=== PATIENT | female | born 1955 | race Caucasian/White ===

== ENCOUNTER 2019-03-20 08:44 | Day surgery (SDC) | payer BC ==
[~2019-03-20 08:44] MED LIST: Propofol 200 MG/20 ML SDV ONE; Sodium Chloride 0.9% 10 ML Syringe FLUSH PRN
[2019-03-20] MEDS: Lactated Ringers 1,000 ML IV SCH (09:16)
--- NOTE | 2019-03-20 09:24 | PCM.HPR ---
H & P Addendum review - H & P Addendum Review Date of Original H & P: 03/04/19 Date Reviewed: 03/20/19 Time Reviewed: 09:23 Patient was Examined: No Changes
[2019-03-20] MEDS ORDERED: Propofol 200 MG/20 ML SDV ONE (09:30)
--- NOTE | 2019-03-20 09:52 | PCM.OPNOTE ---
- General Post-Op/Procedure Note Date of Surgery/Procedure: 03/20/19 Operative Procedure(s): Colonoscopy Findings: Sig tics Pre Op Diagnosis: FH Colon Ca Post-Op Diagnosis: Same Anesthesia Technique: MAC Primary Surgeon: Ruddy Mccoy Anesthesia Provider: Roxanna Lee Complications: None Condition: Good
--- NOTE | 2019-03-20 14:52 | OR ---
Date of Procedure: 03/20/2019 PREOPERATIVE DIAGNOSES: 1. Family history of colon cancer in mother. 2. Family history of ulcerative colitis in son. POSTOPERATIVE DIAGNOSIS: Sigmoid diverticulosis. PROCEDURE: Colonoscopy. ANESTHESIA: IV sedation. DESCRIPTION OF PROCEDURE: The patient was brought to the procedure room where she was placed on her left side and IV sedation administered. Digital rectal exam was performed which was normal. Colonoscope was inserted and advanced to the level of the cecum with minimal difficulty getting through tortuous sigmoid colon. Cecum was confirmed by identifying the appendiceal lumen and ileocecal valve. Prep was good and surfaces were well visualized. Upon withdrawing the scope, the ascending, transverse, and descending colon were normal in appearance. Sigmoid colon was tortuous with multiple diverticula present. Rectum was normal and retroflexion was normal. Air was removed and the scope withdrawn. The patient tolerated the procedure well and returned to Recovery in stable condition. Recommend routine colon screening again in 5 years. EULOGIO AUGUSTE MD /[id number]
== END 2019-03-20 10:52 | disposition home or self-care (01) ==
LOC: LL.SDS 08:44
PROVIDERS: ATTEND Surgery
DX: K57.30 Diverticulosis of large intestine without perforation or abscess without bleeding (principal); R19.4 Change in bowel habit; Z80.0 Family history of malignant neoplasm of digestive organs; Z83.79 Family history of other diseases of the digestive system; E78.5 Hyperlipidemia, unspecified; R06.9 Unspecified abnormalities of breathing; E03.9 Hypothyroidism, unspecified; Z79.899 Other long term (current) drug therapy; Z88.0 Allergy status to penicillin; Z91.048 Other nonmedicinal substance allergy status; Z98.890 Other specified postprocedural states; Z87.891 Personal history of nicotine dependence
CPT/HCPCS: J2704; J7120

== ENCOUNTER 2020-05-15 00:36 | Observation (INO) | payer MEDICARE, BC ==
[2020-05-15] MEDS ORDERED: Sodium Chloride 0.9% 10 ML Syringe FLUSH PRN (00:48)
[2020-05-15 01:22] LABS: PTT,PARTIAL THROMBOPLSTIN TIME 24.7 SEC (24.5-32.8)
[2020-05-15 01:23] LABS: CHLORIDE,CL 106 mmol/L (98-107); SODIUM,NA 142 mmol/L (136-145)
--- NOTE | 2020-05-15 02:02 | EDM.PDOC ---
ED HPI GENERAL MEDICAL PROBLEM - General Chief Complaint: Chest Pain Stated Complaint: chest pain Time Seen by Provider: 05/15/20 00:58 Source of Information: Reports: Patient History Limitations: Reports: No Limitations - History of Present Illness INITIAL COMMENTS - FREE TEXT/NARRATIVE: Patient comes in with complaint of irregular heart beat that was worse at home prior to coming to ER. Has had issues with irregularity since being sick with what she suspects was Covid last spring. This has worsened. Has had chronic issues with mild SOB also since the illness. Kandice developed mild 2/10 discomfort around epigastric area/tightness when her heart was "jumping around" more than usual. Also lightheaded with this. Has had recent cardiac echo and initial evaluation through local [facility] for this. Pending Cardiology consultation next Sunday. No fevers/chills No HEENT changes/vision changes/runny nose/ST/URI complaints Resp + for the ongoing mild SOB since Spring. No acute cough/sputum/pleuritic pain. CV + for irregular heart beats/palpitations/dizziness GI - for nausea/emesis/bowel changes/abdominal pain MS - for acute back or limb pain/other acute changes Neuro - for one sided weakness/tingling/headache Skin - for rash Treatments APPEALS COORDINATOR: Reports: Aspirin Middle Chest Pain Score (Numeric/FACES): 2 - Related Data Allergies Allergy/AdvReac Type Severity Reaction Status Date / Time boric acid Allergy UNKNOWN Verified 03/20/19 08:59 nickel Allergy UNKNOWN Verified 03/20/19 08:59 Penicillins AdvReac Unknown UNKNOWN Verified 05/15/20 00:38 Home Meds: Home Meds Cholecalciferol (Vitamin D3) [Vitamin D3] 1,000 units PO DAILY 03/20/19 [History] Levothyroxine [Synthroid] 100 mcg PO DAILY 03/20/19 [History] Multivitamin [Multi-Vitamin Daily] 2 tab PO WEEKLY 03/20/19 [History] Ubidecarenone [Co Q-10] 100 mg PO BEDTIME 03/20/19 [History] atorvaSTATin [Lipitor] 10 mg PO BEDTIME 03/20/19 [History] [place]-3/DHA/Epa/Fish Oil [[place]-3 Fish Oil Softgel] 1 cap PO ASDIRECTED 05/15/20 [History] Past Medical History Cardiovascular History: Reports: Arrhythmia Respiratory History: Reports: None Gastrointestinal History: Reports: Colon Polyp, Diverticulosis Genitourinary History: Reports: UTI, Recurrent BINDING FOLDER MACHINE History: Reports: Other (See Below) Other BINDING FOLDER MACHINE History: ablation Musculoskeletal History: Reports: Other (See Below) Other Musculoskeletal History: many broken bones in hx denies bone disease Neurological History: Reports: Concussion, Head Trauma, Other (See Below) Other Neuro History: brain bleed Psychiatric History: Reports: ADD, Anxiety Endocrine/Metabolic History: Reports: Other (See Below) Other Endocrine/Metabolic History: daniel syndrome Immunologic History: Reports: Other (See Below) Other Immunologic History: daniel disease Oncologic (Cancer) History: Reports: None Dermatologic History: Reports: None - Infectious Disease History Infectious Disease History: Reports: Chicken Pox - Past Surgical History HEENT Surgical History: Reports: LASIK, Oral Surgery Cardiovascular Surgical History: Reports: None Respiratory Surgical History: Reports: None GI Surgical History: Reports: Colonoscopy Female Surgical History: Reports: Tubal Ligation Endocrine Surgical History: Reports: Thyroidectomy Neurological Surgical History: Reports: Spinal Fusion Musculoskeletal Surgical History: Reports: Other (See Below) Other Musculoskeletal Surgeries/Procedures:: back fusion, right ankle tendon tightening Oncologic Surgical History: Reports: None Dermatological Surgical History: Reports: None Social & Family History - Family History Cardiac: Reports: Hypertension, Other (See Below) Other Cardiac Family History: CVD GI: Reports: Other (See Below) Other GI Family History: Ulcerative colitis - Tobacco Use Smoking Status *Q: Current Some Day Smoker Years of Tobacco use: 0 Packs/Tins Daily: 0 Used Tobacco, but Quit: No Second Hand Smoke Exposure: No - Caffeine Use Caffeine Use: Reports: Coffee - Alcohol Use Days Per Week of Alcohol Use: 7 Number of Drinks Per Day: 1 Total Drinks Per Week: 7 - Recreational Drug Use Recreational Drug Use: Yes Drug Use in Last 12 Months: Yes Recreational Drug Type: Reports: Marijuana/Hashish Recreational Drug Use Frequency: Rarely ED ROS GENERAL - Review of Systems Review Of Systems: Comprehensive ROS is negative, except as noted in HPI. ED EXAM, GENERAL - Physical Exam Exam: See Below Exam Limited By: No Limitations General Appearance: Alert, WD/WN, No Apparent Distress Eye Exam: Bilateral Eye: EOMI, PERRL Ears: Hearing Grossly Normal Nose: Normal Inspection Throat/Mouth: Normal Inspection, Normal Lips, Normal Voice, No Airway Compromise Head: Atraumatic, Normocephalic Neck: Supple, Non-Tender, Full Range of Motion Respiratory/Chest: No Respiratory Distress, Lungs Clear, Normal Breath Sounds, N o Accessory Muscle Use, Chest Non-Tender Cardiovascular: Regular Rate, Rhythm, No Murmur, Other (occasional premature beats) GI/Abdominal: Normal Bowel Sounds, Soft, Non-Tender, No Distention (Female) Exam: Deferred Rectal (Female) Exam: Deferred Back Exam: No: CVA Tenderness (L), CVA Tenderness (R), Muscle Spasm Extremities: Normal Inspection, Normal Capillary Refill Neurological: Alert, Oriented, CN II-XII Intact, Normal Cognition, Normal Gait, No Motor/Sensory Deficits Psychiatric: Normal Affect, Normal Mood Skin Exam: Warm, Dry, Intact, Normal Color EKG INTERPRETATION EKG Date: 05/15/20 Time: 00:30 Rhythm: Other (Sinus Bradycardia) Rate (Beats/Min): 58 [place]: Normal P-Wave: Present QRS: Normal ST-T: Normal QT: Normal Comparison: NA - No Prior EKG EKG Interpretation Comments: intermittent PVCs noted Course - Vital Signs Last Recorded V/S: Last Vital Signs Temp 36.6 C 05/15/20 00:43 Pulse 59 L 05/15/20 01:30 Resp 16 05/15/20 01:30 BP 112/63 05/15/20 01:30 Pulse Ox 97 05/15/20 01:30 - Orders/Labs/Meds Orders: Active Orders 24 hr Category Date Time Status Cardiac Monitoring [RC] . DIRECTED Care 05/15/20 00:48 Active EKG Documentation Completion [RC] ASDIRECTED Care 05/15/20 00:48 Active Peripheral IV Care [RC] . DIRECTED Care 05/15/20 00:50 Active CXR [Chest 2V] [CR] Stat Exams 05/15/20 00:48 Ordered Sodium Chloride 0.9% [Saline Flush] Med 05/15/20 00:48 Active 10 ml FLUSH ASDIRECTED PRN Peripheral IV Insertion Adult [OM.PC] Stat Oth 05/15/20 00:48 Ordered EKG 12 Lead [EK] Stat Ther 05/15/20 00:48 Ordered Medication Orders Sodium Chloride (Saline Flush) 10 ml FLUSH ASDIRECTED PRN PRN Reason: Keep Vein Open Labs: Laboratory Tests 05/15/20 05/15/20 05/15/20 Range/Units 00:55 00:55 00:55 WBC 5.4 (4.0-10.2) K/uL RBC 4.32 (3.77-5.09) M/uL Hgb 12.8 (11.7-15.5) g/dL Hct 38.5 (34.0-46.0) % MCV 89.1 (84.0-98.0) fL MCH 29.6 (28.2-33.3) pg MCHC 33.2 (31.7-36.0) g/dL RDW 13.1 (11.2-14.1) % Plt Count 239 (150-350) K/uL Neut % (Auto) 45.8 (45.0-80.0) % Lymph % (Auto) 33.3 (10.0-50.0) % [place] % (Auto) 9.9 (2.0-14.0) % Eos % (Auto) 9.3 H (0.0-5.0) % Baso % (Auto) 1.7 (0.0-2.0) % Neut # (Auto) 2.46 (1.40-7.00) K/uL Lymph # (Auto) 1.79 (0.50-3.50) K/uL [place] # (Auto) 0.53 (0.00-1.00) K/uL Eos # (Auto) 0.50 (0.00-0.50) K/uL Baso # (Auto) 0.09 (0.00-0.20) K/uL PT 9.7 (9.5-12.0) SEC INR 1.0 APTT 24.7 (24.5-32.8) SEC Sodium 142 (136-145) mmol/L Potassium 3.7 (3.5-5.1) mmol/L Chloride 106 (98-107) mmol/L Carbon Dioxide 24.0 (21.0-32.0) mmol/L BUN 12 (7-18) mg/dL Creatinine 0.78 (0.51-1.17) mg/dL Est Cr Clr Drug Dosing 74.66 mL/min Estimated GFR (MDRD) > 60 mL/min Glucose 103 (74-106) mg/dL Lactic Acid (0.4-2.0) mmol/L Calcium 8.8 (8.5-10.1) mg/dL Magnesium 2.1 (1.8-2.4) mg/dL Total Bilirubin 0.2 (0.2-1.0) mg/dL AST 24 (15-37) U/L ALT 33 (12-78) U/L Alkaline Phosphatase 77 (46-116) IU/L Creatine Kinase 152 (26-308) U/L Creatine Kinase Index 1.5 (0.0-2.5) % CK-MB (CK-2) 2.30 (0.00-3.60) ng/mL Troponin I 0.000 (0.000-0.056) ng/mL NT-Pro-B Natriuret Pep 65 (0-125) pg/mL Total Protein 7.7 (6.4-8.2) g/dL Albumin 4.0 (3.4-5.0) g/dL TSH, Ultra Sensitive 6.073 H (0.358-3.740) mIU/mL 05/15/20 Range/Units 00:55 WBC (4.0-10.2) K/uL RBC (3.77-5.09) M/uL Hgb (11.7-15.5) g/dL Hct (34.0-46.0) % MCV (84.0-98.0) fL MCH (28.2-33.3) pg MCHC (31.7-36.0) g/dL RDW (11.2-14.1) % Plt Count (150-350) K/uL Neut % (Auto) (45.0-80.0) % Lymph % (Auto) (10.0-50.0) % [place] % (Auto) (2.0-14.0) % Eos % (Auto) (0.0-5.0) % Baso % (Auto) (0.0-2.0) % Neut # (Auto) (1.40-7.00) K/uL Lymph # (Auto) (0.50-3.50) K/uL [place] # (Auto) (0.00-1.00) K/uL Eos # (Auto) (0.00-0.50) K/uL Baso # (Auto) (0.00-0.20) K/uL PT (9.5-12.0) SEC INR APTT (24.5-32.8) SEC Sodium (136-145) mmol/L Potassium (3.5-5.1) mmol/L Chloride (98-107) mmol/L Carbon Dioxide (21.0-32.0) mmol/L BUN (7-18) mg/dL Creatinine (0.51-1.17) mg/dL Est Cr Clr Drug Dosing mL/min Estimated GFR (MDRD) mL/min Glucose (74-106) mg/dL Lactic Acid 0.5 (0.4-2.0) mmol/L Calcium (8.5-10.1) mg/dL Magnesium (1.8-2.4) mg/dL Total Bilirubin (0.2-1.0) mg/dL AST (15-37) U/L ALT (12-78) U/L Alkaline Phosphatase (46-116) IU/L Creatine Kinase (26-308) U/L Creatine Kinase Index (0.0-2.5) % CK-MB (CK-2) (0.00-3.60) ng/mL Troponin I (0.000-0.056) ng/mL NT-Pro-B Natriuret Pep (0-125) pg/mL Total Protein (6.4-8.2) g/dL Albumin (3.4-5.0) g/dL TSH, Ultra Sensitive (0.358-3.740) mIU/mL Meds: Medications Generic Name Dose Route Start Last Admin Trade Name Toribioq PRN Reason Stop Dose Admin Sodium Chloride 10 ml 05/15/20 00:48 Saline Flush FLUSH ASDIRECTED PRN Keep Vein Open - Radiology Interpretation Free Text/Narrative:: Chest xray unremarkable - Re-Assessments/Exams Free Text/Narrative Re-Assessment/Exam: 05/15/20 02:05 Nonfocal exam. Labs unremarkable except for elevated TSH. No acute ST changes on EKG Patient noted to have varying amounts of PVCs on telemetry, at one point briefly showing Trigeminy. Plan at this time is to admit observation and continue telemetry. She is feeling improved overall at this time. Vital signs stable. Departure - Departure Time of Disposition: 02:07 Disposition: Refer to Observation Condition: Good Clinical Impression: Symptomatic PVCs - Discharge Information *PRESCRIPTION DRUG MONITORING PROGRAM REVIEWED*: Not Applicable *COPY OF PRESCRIPTION DRUG MONITORING REPORT IN PATIENT COLIN: Not Applicable Sepsis Event Note (ED) - Evaluation Sepsis Screening Result: No Definite Risk - Focused Exam Vital Signs: Vital Signs Temp Pulse Resp BP Pulse Ox 05/15/20 01:30 59 L 16 112/63 97 05/15/20 01:10 57 L 13 136/65 98 05/15/20 00:50 60 16 136/65 97 05/15/20 00:43 36.6 C 63 16 122/83 97 - Problem List & Annotations (1) Symptomatic PVCs SNOMED Code(s): 76009879 Code(s): I49.3 - VENTRICULAR PREMATURE DEPOLARIZATION Status: Chronic Priority: High Current Visit: Yes Annotation/Comment:: Symptomatic PVCs tonight. Increased SOB/lightheaded. Improved by time of arrival to ER. Frequent PVCs on telemetry/brief Trigeminy noted. Normal cardiac enzymes. Was evaluated via clinic with 24 hour heart monitor. Pending Cardiology appointment at [place] this coming Sunday. Admit observation/telemetry at this time. Cardiology consult depending on clinical course. (2) Hyperlipidemia SNOMED Code(s): 57086277 Code(s): E78.5 - HYPERLIPIDEMIA, UNSPECIFIED Status: Chronic Current Visit: Yes Annotation/Comment:: under therapy Qualifiers: Hyperlipidemia type: unspecified Qualified Code(s): E78.5 - Hyperlipidemia, unspecified (3) Hypothyroid SNOMED Code(s): 28759500 Code(s): E03.9 - HYPOTHYROIDISM, UNSPECIFIED Status: Chronic Priority: Medium Current Visit: Yes Annotation/Comment:: Elevated TSH. Will need medication adjustment and continued follow up by PCP. 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 DIRECTED EKG Documentation Completion [RC] ASDIRECTED CXR [Chest 2V] [CR] Stat Sodium Chloride 0.9% [Saline Flush] 10 ml FLUSH ASDIRECTED PRN Peripheral IV Insertion Adult [OM.PC] Stat EKG 12 Lead [EK] Stat 05/15/20 00:50 Peripheral IV Care [RC] . DIRECTED - Assessment/Plan Admission H&P: Please use this note as an admission H&P Last 24 Hours: My Active Orders 05/15/20 00:48 Cardiac Monitoring [RC] . DIRECTED EKG Documentation Completion [RC] ASDIRECTED CXR [Chest 2V] [CR] Stat Sodium Chloride 0.9% [Saline Flush] 10 ml FLUSH ASDIRECTED PRN Peripheral IV Insertion Adult [OM.PC] Stat EKG 12 Lead [EK] Stat 05/15/20 00:50 Peripheral IV Care [RC] . DIRECTED Assessment:: as above. Stable and suitable for general supervision Plan: as above. Consider discharge later today if feeling better and remains stable/excessive PVCs do not return. to assume care of patient at 9am.
[2020-05-15] MEDS ORDERED: Levothyroxine 50 MCG Tab PO ONE (02:22)
[2020-05-15] MEDS: Levothyroxine 100 MCG Tab PO SCH (08:46)
--- NOTE | 2020-05-15 12:41 | PCM.PN ---
- General Info Date of Service: 05/15/20 Admission Dx/Problem (Free Text): 1. Chest pain 2. Cardiac arrhythmia Functional Status: Reports: Pain Controlled, Tolerating Diet, Ambulating, Urinating. Denies: New Symptoms, Incentive Spirometry Pain Score: 0 - Review of Systems General: Reports: No Symptoms. Denies: Fever, Weakness, Fatigue, Malaise, Chills, Night Sweats, Appetite (Appetite good) HEENT: Reports: No Symptoms. Denies: Dysphasia, Ear Pain, Eye Pain, Headaches, Post Nasal Drip, Sinus Congestion, Sore Throat, Rhinitis, Visual Changes Pulmonary: Reports: No Symptoms. Denies: Shortness of Breath, Pleuritic Chest Pain, Cough, Sputum, Hemoptysis, Wheezing Cardiovascular: Reports: Dyspnea on Exertion. Denies: Chest Pain, Palpitations, Orthopnea, PND, Edema, Lightheadedness Gastrointestinal: Reports: No Symptoms, Other (Normal bowel movement today). Denies: Abdominal Pain, Constipation, Decreased Appetite, Diarrhea, Difficulty Swallowing, Flatus, Hematochezia, Melena, Nausea, Vomiting Genitourinary: Reports: No Symptoms. Denies: Dysuria, Frequency, Burning, Urgency, Incontinence, Hematuria, Retention, Flank Pain Musculoskeletal: Reports: No Symptoms. Denies: Neck Pain, Shoulder Pain, Arm Pain, Back Pain, Leg Pain Skin: Reports: No Symptoms. Denies: Diaphoresis, Bruising Neurological: Reports: No Symptoms. Denies: Confusion, Dizziness, Headache, Numbness, Paresthesia, Tingling, Trouble Speaking, Difficulty Walking, Weakness Psychiatric: Reports: No Symptoms. Denies: Confusion, Depression, Agitation, Cravings, Hallucinations - Patient Data Vitals - Most Recent: Last Vital Signs Temp 37.0 C 05/15/20 12:00 Pulse 68 05/15/20 12:00 Resp 16 05/15/20 12:00 BP 115/72 05/15/20 12:00 Pulse Ox 94 L 05/15/20 12:00 Vital Signs - 24 hr 05/15/20 05/15/20 05/15/20 00:43 00:50 01:10 Temperature [ 36.6 C Temporal] Pulse, 63 60 57 L Peripheral [ Apical] Pulse, Peripheral [ Right Pulse Oximetry] Respiratory 16 16 13 Rate Blood Pressure 122/83 136/65 136/65 [Left Upper Arm ] O2 Sat by Pulse 97 97 98 Oximetry 05/15/20 05/15/20 05/15/20 01:30 02:03 02:19 Temperature [ 36.4 C Temporal] Pulse, 59 L 57 L Peripheral [ Apical] Pulse, Peripheral [ Right Pulse Oximetry] Respiratory 16 13 Rate Blood Pressure 112/63 119/79 [Left Upper Arm ] O2 Sat by Pulse 97 97 98 Oximetry 05/15/20 05/15/20 08:49 12:00 Temperature [ 36.7 C 37.0 C Temporal] Pulse, Peripheral [ Apical] Pulse, 58 L 68 Peripheral [ Right Pulse Oximetry] Respiratory 16 16 Rate Blood Pressure 112/79 115/72 [Left Upper Arm ] O2 Sat by Pulse 94 L Oximetry Weight - Most Recent: 67.404 kg Imaging Impressions - Last 24 Hours: nurse monitoring shows persistent trigeminy after admission with improved arrhythmia at this time, although persistent frequent PVCs with average heart rate in the 60s with no other ectopy or arrhythmia Lab Results Last 24 Hours: Laboratory Results - last 24 hr 05/15/20 05/15/20 05/15/20 Range/Units 00:50 00:55 00:55 WBC 5.4 (4.0-10.2) K/uL RBC 4.32 (3.77-5.09) M/uL Hgb 12.8 (11.7-15.5) g/dL Hct 38.5 (34.0-46.0) % MCV 89.1 (84.0-98.0) fL MCH 29.6 (28.2-33.3) pg MCHC 33.2 (31.7-36.0) g/dL RDW 13.1 (11.2-14.1) % Plt Count 239 (150-350) K/uL Neut % (Auto) 45.8 (45.0-80.0) % Lymph % (Auto) 33.3 (10.0-50.0) % [place] % (Auto) 9.9 (2.0-14.0) % Eos % (Auto) 9.3 H (0.0-5.0) % Baso % (Auto) 1.7 (0.0-2.0) % Neut # (Auto) 2.46 (1.40-7.00) K/uL Lymph # (Auto) 1.79 (0.50-3.50) K/uL [place] # (Auto) 0.53 (0.00-1.00) K/uL Eos # (Auto) 0.50 (0.00-0.50) K/uL Baso # (Auto) 0.09 (0.00-0.20) K/uL PT 9.7 (9.5-12.0) SEC INR 1.0 APTT 24.7 (24.5-32.8) SEC D-Dimer, Quantitative 154 (0-400) ng/mL Sodium (136-145) mmol/L Potassium (3.5-5.1) mmol/L Chloride (98-107) mmol/L Carbon Dioxide (21.0-32.0) mmol/L BUN (7-18) mg/dL Creatinine (0.51-1.17) mg/dL Est Cr Clr Drug Dosing mL/min Estimated GFR (MDRD) mL/min Glucose (74-106) mg/dL Lactic Acid (0.4-2.0) mmol/L Calcium (8.5-10.1) mg/dL Magnesium (1.8-2.4) mg/dL Total Bilirubin (0.2-1.0) mg/dL AST (15-37) U/L ALT (12-78) U/L Alkaline Phosphatase (46-116) IU/L Creatine Kinase (26-308) U/L Creatine Kinase Index (0.0-2.5) % CK-MB (CK-2) (0.00-3.60) ng/mL Troponin I (0.000-0.056) ng/mL NT-Pro-B Natriuret Pep (0-125) pg/mL Total Protein (6.4-8.2) g/dL Albumin (3.4-5.0) g/dL TSH, Ultra Sensitive (0.358-3.740) mIU/mL 05/15/20 05/15/20 05/15/20 Range/Units 00:55 00:55 11:45 WBC (4.0-10.2) K/uL RBC (3.77-5.09) M/uL Hgb (11.7-15.5) g/dL Hct (34.0-46.0) % MCV (84.0-98.0) fL MCH (28.2-33.3) pg MCHC (31.7-36.0) g/dL RDW (11.2-14.1) % Plt Count (150-350) K/uL Neut % (Auto) (45.0-80.0) % Lymph % (Auto) (10.0-50.0) % [place] % (Auto) (2.0-14.0) % Eos % (Auto) (0.0-5.0) % Baso % (Auto) (0.0-2.0) % Neut # (Auto) (1.40-7.00) K/uL Lymph # (Auto) (0.50-3.50) K/uL [place] # (Auto) (0.00-1.00) K/uL Eos # (Auto) (0.00-0.50) K/uL Baso # (Auto) (0.00-0.20) K/uL PT (9.5-12.0) SEC INR APTT (24.5-32.8) SEC D-Dimer, Quantitative (0-400) ng/mL Sodium 142 (136-145) mmol/L Potassium 3.7 (3.5-5.1) mmol/L Chloride 106 (98-107) mmol/L Carbon Dioxide 24.0 (21.0-32.0) mmol/L BUN 12 (7-18) mg/dL Creatinine 0.78 (0.51-1.17) mg/dL Est Cr Clr Drug Dosing 74.66 mL/min Estimated GFR (MDRD) > 60 mL/min Glucose 103 (74-106) mg/dL Lactic Acid 0.5 (0.4-2.0) mmol/L Calcium 8.8 (8.5-10.1) mg/dL Magnesium 2.1 (1.8-2.4) mg/dL Total Bilirubin 0.2 (0.2-1.0) mg/dL AST 24 (15-37) U/L ALT 33 (12-78) U/L Alkaline Phosphatase 77 (46-116) IU/L Creatine Kinase 152 (26-308) U/L Creatine Kinase Index 1.5 (0.0-2.5) % CK-MB (CK-2) 2.30 (0.00-3.60) ng/mL Troponin I 0.000 0.000 (0.000-0.056) ng/mL NT-Pro-B Natriuret Pep 65 (0-125) pg/mL Total Protein 7.7 (6.4-8.2) g/dL Albumin 4.0 (3.4-5.0) g/dL TSH, Ultra Sensitive 6.073 H (0.358-3.740) mIU/mL 05/15/20 Range/Units 11:45 WBC (4.0-10.2) K/uL RBC (3.77-5.09) M/uL Hgb (11.7-15.5) g/dL Hct (34.0-46.0) % MCV (84.0-98.0) fL MCH (28.2-33.3) pg MCHC (31.7-36.0) g/dL RDW (11.2-14.1) % Plt Count (150-350) K/uL Neut % (Auto) (45.0-80.0) % Lymph % (Auto) (10.0-50.0) % [place] % (Auto) (2.0-14.0) % Eos % (Auto) (0.0-5.0) % Baso % (Auto) (0.0-2.0) % Neut # (Auto) (1.40-7.00) K/uL Lymph # (Auto) (0.50-3.50) K/uL [place] # (Auto) (0.00-1.00) K/uL Eos # (Auto) (0.00-0.50) K/uL Baso # (Auto) (0.00-0.20) K/uL PT (9.5-12.0) SEC INR APTT (24.5-32.8) SEC D-Dimer, Quantitative (0-400) ng/mL Sodium (136-145) mmol/L Potassium (3.5-5.1) mmol/L Chloride (98-107) mmol/L Carbon Dioxide (21.0-32.0) mmol/L BUN (7-18) mg/dL Creatinine (0.51-1.17) mg/dL Est Cr Clr Drug Dosing mL/min Estimated GFR (MDRD) mL/min Glucose (74-106) mg/dL Lactic Acid (0.4-2.0) mmol/L Calcium (8.5-10.1) mg/dL Magnesium (1.8-2.4) mg/dL Total Bilirubin (0.2-1.0) mg/dL AST (15-37) U/L ALT (12-78) U/L Alkaline Phosphatase (46-116) IU/L Creatine Kinase 126 (26-308) U/L Creatine Kinase Index 1.3 (0.0-2.5) % CK-MB (CK-2) 1.70 (0.00-3.60) ng/mL Troponin I (0.000-0.056) ng/mL NT-Pro-B Natriuret Pep (0-125) pg/mL Total Protein (6.4-8.2) g/dL Albumin (3.4-5.0) g/dL TSH, Ultra Sensitive (0.358-3.740) mIU/mL Dc Results Last 24 Hours: None Med Orders - Current: Current Medications Atorvastatin Calcium (Lipitor) 10 mg PO BEDTIME TOMER Levothyroxine Sodium (Synthroid) 100 mcg PO DAILY TOMER Last Admin: 05/15/20 08:46 Dose: 100 mcg Documented by: Sodium Chloride (Saline Flush) 10 ml FLUSH ASDIRECTED PRN PRN Reason: Keep Vein Open Discontinued Medications Levothyroxine Sodium (Synthroid) 50 mcg PO ONETIME ONE Stop: 05/15/20 02:23 Last Admin: 05/15/20 02:51 Dose: 50 mcg Documented by: - Exam Quality Assessment: DVT Prophylaxis. No: Supplemental Oxygen, Central Line/PICC, Urine Catheter, Skin Breakdown General: Alert, Oriented, Cooperative, No Acute Distress HEENT: Pupils Equal, Pupils Reactive, EOMI, Mucous Membr. Moist/[place] Neck: Supple, Trachea Midline, No JVD, No Thyromegaly. No: Lymphadenopathy Lungs: Clear to Auscultation, Normal Respiratory Effort. No: Rub Cardiovascular: Regular Rate, No Murmurs, Irregular Rhythm. No: Murmurs, Gallops, Rubs GI/Abdominal Exam: Normal Bowel Sounds, Soft, Non-Tender, No Organomegaly, No Distention, No Abnormal Bruit, No Mass. No: Guarding (Female) Exam: Deferred Back Exam: Normal Inspection, Full Range of Motion. No: CVA Tenderness (L), CVA Tenderness (R), Muscle Spasm Extremities: Normal Inspection, Normal Range of Motion, Non-Tender, No Pedal Edema, Normal Capillary Refill. No: Ba's Sign Peripheral Pulses: 2+: Radial (L), Radial (R), Dorsalis Pedis (L), Dorsalis Pedis (R) Skin: Warm, Dry, Intact. No: Ecchymosis Neurological: No New Focal Deficit, Other (No clinical orthostasis) Psy/Mental Status: Alert, Normal Affect, Normal Mood. No: Anxious, Depressed, Agitated, Hallucinations, Withdrawal Symptoms EKG INTERPRETATION EKG Date: 05/15/20 Time: 11:28 Rhythm: Other (Normal sinus rhythm with occasional PVCs) Rate (Beats/Min): 60 [place]: Normal (Left versus neutral) P-Wave: Present QRS: Normal (0.09 seconds with stable T wave inversion in lead V1) ST-T: Normal QT: Normal [place]/PQ Interval: 0.15 seconds with mild poor R wave progression in the anterior leads Comparison: No Change (Last EKG at 0:30 hours on 05/15/2020) Sepsis Event Note - Evaluation Sepsis Screening Result: No Definite Risk - Focused Exam Vital Signs: Vital Signs Temp Pulse Pulse Resp BP Pulse Ox 05/15/20 12:00 37.0 C 68 16 115/72 94 L 05/15/20 08:49 36.7 C 58 L 16 112/79 05/15/20 02:19 98 05/15/20 02:03 36.4 C 57 L 13 119/79 97 05/15/20 01:30 59 L 16 112/63 97 05/15/20 01:10 57 L 13 136/65 98 05/15/20 00:50 60 16 136/65 97 05/15/20 00:43 36.6 C 63 16 122/83 97 - Problem List & Annotations (1) Hyperlipidemia SNOMED Code(s): 47036584 Code(s): E78.5 - HYPERLIPIDEMIA, UNSPECIFIED Status: Chronic Priority: Medium Current Visit: Yes Qualifiers: Hyperlipidemia type: unspecified Qualified Code(s): E78.5 - Hyperlipidemia, unspecified Annotation/Comment:: Currently under therapy. Glycosylated hemoglobin and fasting lipid panel in the a.m. 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 Free T3 and free T4 to be conducted during this hospitalization secondary to her cardiac arrhythmia and history of Buster's. Recommend repeat TSH by her regular provider in 4 weeks with possible additional free T3 and free T4 as above. (3) Symptomatic PVCs SNOMED Code(s): 25306189 Code(s): I49.3 - VENTRICULAR PREMATURE DEPOLARIZATION Status: Chronic Priority: High Current Visit: Yes Annotation/Comment:: Symptomatic PVCs prior to admission, including some dyspnea, atypical chest pain, and returned dyspnea. No chest pain or anginal type symptoms at this time. Her d-dimer is negative with various therapeutic options discussed, including CTA of the chest, which the patient wishes to delay until her cardiology consultation at [facility] on 05/18. [facility] EMR was reviewed by me today. Note EKG on 05/13/2020 did show T wave inversions in both lead V1 and V2 with these resolved at this time. Echocardiogram on 04/27/2020 showed only mild aortic and mitral valve insufficiency with otherwise normal cardiac function of 55-60% and no other abnormalities. Holter monitor study on 04/29/2020 showed occasional bradycardia, tachycardia, and frequent PVCs including couplets, bigeminy, trigeminy, and quadrigeminy. The patient feels that she had non-diagnosed COVID-19 in October, however she was not tested at that time. Note that the patient did donate blood about 6 weeks ago with negative antibody screen for COVID by her history. Continue negative rule out for acute CA. Cardiology consult depending on clinical course. (4) Atypical chest pain SNOMED Code(s): 006533151 Code(s): R07.89 - OTHER CHEST PAIN Status: Acute Priority: High Current Visit: Yes Onset Date: 05/15/20 Annotation/Comment:: As above (5) Mixed anxiety depressive disorder SNOMED Code(s): 225798150 Code(s): F41.8 - OTHER SPECIFIED ANXIETY DISORDERS Status: Chronic Priority: Medium Current Visit: Yes Annotation/Comment:: Stable by history with previous history of ADD. (6) History of subdural hematoma SNOMED Code(s): 625348057 Code(s): Z86.79 - PERSONAL HISTORY OF OTHER DISEASES OF THE CIRCULATORY SYSTE M Status: Chronic Priority: Medium Current Visit: Yes Annotation/Comment:: No headaches, visual changes or neurological deficits. - Problem List Review Problem List Initiated/Reviewed/Updated: Yes - My Orders Last 24 Hours: My Active Orders 05/15/20 11:12 EKG Documentation Completion [RC] ASDIRECTED - Assessment Assessment:: As above - Plan Plan:: As above. Extensive precautions were given to the patient, who is in agreement with the treatment plan. See Patient Instructions for further treatment and plan.
[2020-05-15] MEDS ORDERED: atorvaSTATin 10 MG Tab PO SCH (20:00)
[2020-05-16] MEDS: Levothyroxine 100 MCG Tab PO SCH (07:00)
--- NOTE | 2020-05-16 09:44 | PCM.DCSUM1 ---
Discharge Summary - Hospital Course HPI Initial Comments: See emergency room note/admission H&P Brief History: See emergency room note/admission H&P Diagnosis: Stroke: No Modified Bascom Scale: No Symptoms at All Modified Bascom Scale Score: 0 - Discharge Data Discharge Date: 05/16/20 Discharge Disposition: Home, Self-Care 01 Condition: Good - Referral to Home Health Primary Care Physician: PCP None - Discharge Diagnosis/Problem(s) (1) Symptomatic PVCs SNOMED Code(s): 64744250 ICD Code: I49.3 - VENTRICULAR PREMATURE DEPOLARIZATION Status: Chronic Priority: High Current Visit: Yes Problem Details: Symptomatic PVCs prior to admission, including some dyspnea, atypical chest pain, and returned dyspnea. No chest pain or anginal type symptoms at this time. Her D-dimer is negative with various therapeutic options discussed, including CTA of the chest, which the patient wishes to delay until her cardiology consultation at [facility] on 05/18. Note that patient did have a distant possible COVID-19 infection in October as below with possible false negative normal D-dimer. [facility] EMR was reviewed by me on 05/15. Note EKG on 05/13/2020 did show T wave inversions in both lead V1 and V2 with these resolved at this time and previously possibly secondary to lead placement. Echocardiogram on 04/27/2020 showed only mild aortic and mitral valve insufficiency with otherwise normal cardiac function of 55-60% and no other abnormalities. Holter monitor study on 04/29/2020 showed occasional bradycardia, tachycardia, and frequent PVCs including couplets, bigeminy, trigeminy, and quadrigeminy. The patient feels that she had non-diagnosed COVID- 19 in October, however she was not tested at that time. Note that the patient did donate blood about 6 weeks ago with negative antibody screen for COVID by her history, however secondary to distant possible infection this may have been a false negative antibody screen. Patient may be a candidate for a pacemaker depending on her clinical course, which was discussed during today's visit. Persistent intermittent trigeminy throughout this hospitalization, although the patient is not symptomatic at this time. Per her request she will be discharged with activity restrictions, etc. discussed. Note negative work-up for an acute AR. (2) Atypical chest pain SNOMED Code(s): 573732584 ICD Code: R07.89 - OTHER CHEST PAIN Status: Acute Priority: High Current Visit: Yes Onset Date: 05/15/20 Problem Details: As above (3) Hyperlipidemia SNOMED Code(s): 01523069 ICD Code: E78.5 - HYPERLIPIDEMIA, UNSPECIFIED Status: Chronic Priority: Medium Current Visit: Yes Problem Details: Currently under therapy. Glycosylated hemoglobin and fasting lipid panel, which was initially planned, was unfortunately not conducted prior to patient's discharge. Attempt to obtain after patient discharge. Qualifiers: Hyperlipidemia type: unspecified Qualified Code(s): E78.5 - Hyperlipidemia, unspecified (4) Hypothyroid SNOMED Code(s): 33419705 ICD Code: E03.9 - HYPOTHYROIDISM, UNSPECIFIED Status: Chronic Priority: Medium Current Visit: Yes Problem Details: Elevated TSH on admission with increase of supplementation during this hospitalization. Free T3 and free T4 to be conducted during this hospitalization secondary to her cardiac arrhythmia and history of Buster's. Recommend repeat TSH by her regular provider in 4 weeks with possible additional free T3 and free T4 as above. Further endocrinology consultation, thyroid ultrasound, etc. depending on her clinical course. 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 (6) History of subdural hematoma SNOMED Code(s): 466369958 ICD Code: Z86.79 - PERSONAL HISTORY OF OTHER DISEASES OF THE CIRCULATORY SYSTEM Status: Chronic Priority: Medium Current Visit: Yes Problem Details: Minor headache yesterday evening, however no headaches this morning with no visual changes or neurological deficits. (7) Shortened ME interval SNOMED Code(s): 26485113 ICD Code: R94.31 - ABNORMAL ELECTROCARDIOGRAM [ECG] [EKG] Status: Acute Current Visit: Yes Onset Date: ~05/14/20 Problem Details: Mild short ME interval with no delta waves noted. Note cardiac arrhythmia as above. Observe for now with cardiology consultation as above. (8) COPD (chronic obstructive pulmonary disease) SNOMED Code(s): 01350682 ICD Code: J44.9 - CHRONIC OBSTRUCTIVE PULMONARY DISEASE, UNSPECIFIED Status: Acute Priority: Medium Current Visit: Yes Onset Date: 05/15/20 Problem Details: COPD by chest x-ray with no current therapy. No recent fever or bronchitic type symptoms. Consider PFTs as above. Qualifiers: COPD type: emphysema Emphysema type: panlobular Qualified Code(s): J43.1 - Panlobular emphysema (9) Osteoarthritis SNOMED Code(s): 395245516 ICD Code: M19.90 - UNSPECIFIED OSTEOARTHRITIS, UNSPECIFIED SITE Status: Chronic Priority: Medium Current Visit: Yes Problem Details: Stable by history with history of lower thoracic spinal fusion. Qualifiers: Osteoarthritis location: multiple joints Osteoarthritis type: primary Qualified Code(s): M89.49 - Other hypertrophic osteoarthropathy, multiple sites - Patient Summary/Data Operative Procedure(s) Performed: None Complications: None Consults: None Labs Pending at D/C: 1. Free T3 2. Final chest x-ray report from 05/15/2020 Recommended Follow-up Testing/Procedures: As per discharge instructions Planned Operative Procedure(s) after DC: None Hospital Course: The patient was placed in observation status on telemetry with negative work-up for acute AR. Note significant cardiac arrhythmia during this hospitalization, which was nonsymptomatic at time of discharge and variable in nature. The patient already has a follow-up appointment scheduled with her electromechanical assembly technician at [facility] on 05/18. Otherwise no complications during this hospitalization. - Patient Instructions Diet: Heart Healthy Diet Activity: No Strenuous Activities (50% maximum exercise restriction with fall, injury, etc. precautions until released by your electromechanical assembly technician) Driving: Do Not Drive Showering/Bathing: May Shower Notify Provider of: Increased Pain, Nausea and/or Vomiting Other/Special Instructions: 1. Follow-up with your electromechanical assembly technician at [facility] as already scheduled on 05/18. 2. At the above follow-up discuss possibility of recommended CTA of the chest and PFTs secondary to her possible distant COVID-19 infection and dyspnea with minor exercise. 3. Immediately after this visit verify that your cellular telephone's voicemail has been activated and is empty. Also verify that your home telephone's answering machine is operating properly and has space to receive messages. Note that it is sometimes necessary for us to be able to contact you at a later date to discuss your medical care. 4. Please remember that we are ALWAYS here for you and want to answer any questions you may have. Feel free to call the hospital any time and we call you back [facility]. SYMPTOMS TO LOOK OUT FOR: . You have been hospitalized for your heart disease and should look out for the following symptoms after discharge: . 1. Make absolutely certain that you completely understand the reasons you are taking any of your new and/or old medications and/or supplements as discussed with you by the nurse at time of discharge. This includes possible side effects versus interactions between your medications and/or supplements. Don't be afraid to take extra time to ask any questions or express any concerns, because that is what we are here for. It is very important to us that you understand your care. 2. Notify this facility, telephone number [phone], and/or your regular provider [facility] if you experience any of the following symptoms: a. Sudden chest pressure or pain especially with radiation to the neck, jaws, arms, mid back, etc. especially if these are associated with nausea, cold sweats, dizziness, racing heart, weakness, near fainting, etc. b. Any shortness of breath or decreased exercise tolerance that has changed since your hospital discharge and is not normal for you. c. Any persistent heartburn type symptoms that is not normal for you and is not relieved by any of your discharge medications or supplements. d. Any progressive weight gain especially more than 5 pounds of weight gain prior to your scheduled appointment with your regular provider. e. Any racing heart, dizziness, etc. not associated with the other symptoms as above. f. Any persistent fever equal to or greater than 100.5 degrees, which does not respond to recommended doses of Tylenol, ibuprofen, Aleve, or other previously prescribed fever medications. - Discharge Plan *PRESCRIPTION DRUG MONITORING PROGRAM REVIEWED*: Not Applicable *COPY OF PRESCRIPTION DRUG MONITORING REPORT IN PATIENT COLIN: Not Applicable Prescriptions/Med Rec: Levothyroxine Sodium [Synthroid] 125 mcg PO ACBREAKFAST #60 tablet Home Medications: Home Meds Cholecalciferol (Vitamin D3) [Vitamin D3] 1,000 units PO DAILY 03/20/19 [History] Multivitamin [Multi-Vitamin Daily] 2 tab PO WEEKLY 03/20/19 [History] Ubidecarenone [Co Q-10] 100 mg PO BEDTIME 03/20/19 [History] atorvaSTATin [Lipitor] 10 mg PO BEDTIME 03/20/19 [History] [place]-3/DHA/Epa/Fish Oil [[place]-3 Fish Oil Softgel] 1 cap PO ASDIRECTED 05/15/20 [History] Levothyroxine Sodium [Synthroid] 125 mcg PO ACBREAKFAST #60 tablet 05/16/20 [Rx] Oxygen Therapy Mode: Room Air Patient Handouts: Nonspecific Chest Pain, Adult, [id number], Palpitations, [id number] Forms: ED Department Discharge Referrals: PCP,None [Primary Care Provider] - - Discharge Summary/Plan Comment DC Time >30 min.: Yes (Coordination of care ) Discharge Summary/Plan Comment: As above. Extensive precautions were given to the patient, who is in agreement with the treatment plan. See Patient Instructions for further treatment and plan. - General Info Date of Service: 05/16/20 Admission Dx/Problem (Free Text: 1. Chest pain 2. Cardiac arrhythmia Functional Status: Reports: Pain Controlled, Tolerating Diet, Ambulating, Urinating. Denies: New Symptoms, Incentive Spirometry Numeric/FACES Score: 0 (Minor headache yesterday resolved at this time) - Review of Systems General: Reports: No Symptoms. Denies: Fever, Weakness, Fatigue, Malaise, Chills, Night Sweats, Appetite (Good) HEENT: Reports: No Symptoms. Denies: Dysphasia, Ear Pain, Eye Pain, Headaches (Resolved as above), Post Nasal Drip, Sinus Congestion, Sore Throat, Rhinitis, Visual Changes Pulmonary: Reports: No Symptoms. Denies: Shortness of Breath, Cough, Sputum, Hemoptysis, Wheezing Cardiovascular: Reports: Dyspnea on Exertion (Improved and not present at discharge). Denies: Chest Pain, Palpitations, Orthopnea, PND, Edema, Lightheadedness Gastrointestinal: Reports: No Symptoms. Denies: Abdominal Pain, Constipation, Decreased Appetite, Diarrhea, Difficulty Swallowing, Flatus, Hematochezia, Melena, Nausea, Vomiting Genitourinary: Reports: No Symptoms. Denies: Dysuria, Frequency, Burning, Pain, Urgency, Incontinence, Hematuria, Retention, Flank Pain Musculoskeletal: Reports: No Symptoms. Denies: Neck Pain, Shoulder Pain, Arm Pain, Back Pain, Leg Pain Skin: Reports: No Symptoms. Denies: Diaphoresis Neurological: Reports: No Symptoms. Denies: Confusion, Dizziness, Headache (Resolved as above), Numbness, Paresthesia, Tingling, Weakness Psychiatric: Reports: No Symptoms. Denies: Confusion, Depression, Anxiety, Agitation, Cravings, Hallucinations - Patient Data Vitals - Most Recent: Last Vital Signs Temp 36.4 C 05/16/20 06:00 Pulse 65 05/16/20 06:00 Resp 18 05/16/20 06:00 BP 114/70 05/16/20 06:00 Pulse Ox 96 05/16/20 06:00 Vital Signs - 24 hr 05/15/20 05/15/20 05/15/20 12:00 18:00 23:45 Temperature [ 37.0 C 36.9 C 36.8 C Temporal] Pulse, 68 69 59 L Peripheral [ Right Pulse Oximetry] Respiratory 16 20 17 Rate Blood Pressure 115/72 [Left Upper Arm ] Blood Pressure 113/75 127/80 [Right Upper Arm] O2 Sat by Pulse 94 L 99 94 L Oximetry 05/16/20 06:00 Temperature [ 36.4 C Temporal] Pulse, 65 Peripheral [ Right Pulse Oximetry] Respiratory 18 Rate Blood Pressure 114/70 [Left Upper Arm ] Blood Pressure [Right Upper Arm] O2 Sat by Pulse 96 Oximetry Weight - Most Recent: 67.404 kg I&O - Last 24 hours: Intake & Output 05/15/20 05/16/20 05/16/20 22:59 06:59 14:59 Intake Total 240 360 Balance 240 360 Imaging Impressions - Last 24 hrs: telemetry monitor shows continued intermittent frequent trigeminy and PVCs with average heart rate in the 60s to 70s and heart rate ranging in the 70s to 80s. No other significant arrhythmia noted. Note stable frequent PVCs with ambulation however no desaturations or significant symptoms with activity at discharge. Chest x-ray, PA and lateral, from 05/15/2020 showed evidence of probable mild to moderate pulmonary obstructive disease with mild aortic valve calcification and mild prominence of the proximal aortic arch. No significant CHF, however a small left pleural effusion was present. Note status post fusion of the lower thoracic spine with additional moderate osteoarthritic and osteoporotic changes. Small hiatal hernia also noted. Lab Results - Last 24 hrs: Laboratory Results - last 24 hr 05/15/20 05/15/20 05/15/20 Range/Units 00:50 11:45 11:45 WBC (4.0-10.2) K/uL RBC (3.77-5.09) M/uL Hgb (11.7-15.5) g/dL Hct (34.0-46.0) % MCV (84.0-98.0) fL MCH (28.2-33.3) pg MCHC (31.7-36.0) g/dL RDW (11.2-14.1) % Plt Count (150-350) K/uL Neut % (Auto) (45.0-80.0) % Lymph % (Auto) (10.0-50.0) % [place] % (Auto) (2.0-14.0) % Eos % (Auto) (0.0-5.0) % Baso % (Auto) (0.0-2.0) % Neut # (Auto) (1.40-7.00) K/uL Lymph # (Auto) (0.50-3.50) K/uL [place] # (Auto) (0.00-1.00) K/uL Eos # (Auto) (0.00-0.50) K/uL Baso # (Auto) (0.00-0.20) K/uL D-Dimer, Quantitative 154 (0-400) ng/mL Creatine Kinase 126 (26-308) U/L Creatine Kinase Index 1.3 (0.0-2.5) % CK-MB (CK-2) 1.70 (0.00-3.60) ng/mL Troponin I 0.000 (0.000-0.056) ng/mL 05/15/20 05/16/20 Range/Units 18:40 07:35 WBC 5.7 (4.0-10.2) K/uL RBC 4.80 (3.77-5.09) M/uL Hgb 14.3 D (11.7-15.5) g/dL Hct 43.3 (34.0-46.0) % MCV 90.2 (84.0-98.0) fL MCH 29.8 (28.2-33.3) pg MCHC 33.0 (31.7-36.0) g/dL RDW 13.5 (11.2-14.1) % Plt Count 255 (150-350) K/uL Neut % (Auto) 55.1 (45.0-80.0) % Lymph % (Auto) 27.4 (10.0-50.0) % [place] % (Auto) 10.1 (2.0-14.0) % Eos % (Auto) 6.2 H (0.0-5.0) % Baso % (Auto) 1.2 (0.0-2.0) % Neut # (Auto) 3.11 (1.40-7.00) K/uL Lymph # (Auto) 1.55 (0.50-3.50) K/uL [place] # (Auto) 0.57 (0.00-1.00) K/uL Eos # (Auto) 0.35 (0.00-0.50) K/uL Baso # (Auto) 0.07 (0.00-0.20) K/uL D-Dimer, Quantitative (0-400) ng/mL Creatine Kinase 102 (26-308) U/L Creatine Kinase Index 1.1 (0.0-2.5) % CK-MB (CK-2) 1.10 (0.00-3.60) ng/mL Troponin I 0.000 (0.000-0.056) ng/mL Laboratory Tests 05/15/20 05/15/20 05/15/20 Range/Units 00:50 00:55 00:55 WBC 5.4 (4.0-10.2) K/uL RBC 4.32 (3.77-5.09) M/uL Hgb 12.8 (11.7-15.5) g/dL Hct 38.5 (34.0-46.0) % MCV 89.1 (84.0-98.0) fL MCH 29.6 (28.2-33.3) pg MCHC 33.2 (31.7-36.0) g/dL RDW 13.1 (11.2-14.1) % Plt Count 239 (150-350) K/uL Neut % (Auto) 45.8 (45.0-80.0) % Lymph % (Auto) 33.3 (10.0-50.0) % [place] % (Auto) 9.9 (2.0-14.0) % Eos % (Auto) 9.3 H (0.0-5.0) % Baso % (Auto) 1.7 (0.0-2.0) % Neut # (Auto) 2.46 (1.40-7.00) K/uL Lymph # (Auto) 1.79 (0.50-3.50) K/uL [place] # (Auto) 0.53 (0.00-1.00) K/uL Eos # (Auto) 0.50 (0.00-0.50) K/uL Baso # (Auto) 0.09 (0.00-0.20) K/uL PT 9.7 (9.5-12.0) SEC INR 1.0 APTT 24.7 (24.5-32.8) SEC D-Dimer, Quantitative 154 (0-400) ng/mL Sodium (136-145) mmol/L Potassium (3.5-5.1) mmol/L Chloride (98-107) mmol/L Carbon Dioxide (21.0-32.0) mmol/L BUN (7-18) mg/dL Creatinine (0.51-1.17) mg/dL Est Cr Clr Drug Dosing mL/min Estimated GFR (MDRD) mL/min Glucose (74-106) mg/dL Lactic Acid (0.4-2.0) mmol/L Calcium (8.5-10.1) mg/dL Magnesium (1.8-2.4) mg/dL Total Bilirubin (0.2-1.0) mg/dL AST (15-37) U/L ALT (12-78) U/L Alkaline Phosphatase (46-116) IU/L Creatine Kinase (26-308) U/L Creatine Kinase Index (0.0-2.5) % CK-MB (CK-2) (0.00-3.60) ng/mL Troponin I (0.000-0.056) ng/mL NT-Pro-B Natriuret Pep (0-125) pg/mL Total Protein (6.4-8.2) g/dL Albumin (3.4-5.0) g/dL Free T4 (0.76-1.46) ng/dL TSH, Ultra Sensitive (0.358-3.740) mIU/mL 05/15/20 05/15/20 05/15/20 Range/Units 00:55 00:55 11:45 WBC (4.0-10.2) K/uL RBC (3.77-5.09) M/uL Hgb (11.7-15.5) g/dL Hct (34.0-46.0) % MCV (84.0-98.0) fL MCH (28.2-33.3) pg MCHC (31.7-36.0) g/dL RDW (11.2-14.1) % Plt Count (150-350) K/uL Neut % (Auto) (45.0-80.0) % Lymph % (Auto) (10.0-50.0) % [place] % (Auto) (2.0-14.0) % Eos % (Auto) (0.0-5.0) % Baso % (Auto) (0.0-2.0) % Neut # (Auto) (1.40-7.00) K/uL Lymph # (Auto) (0.50-3.50) K/uL [place] # (Auto) (0.00-1.00) K/uL Eos # (Auto) (0.00-0.50) K/uL Baso # (Auto) (0.00-0.20) K/uL PT (9.5-12.0) SEC INR APTT (24.5-32.8) SEC D-Dimer, Quantitative (0-400) ng/mL Sodium 142 (136-145) mmol/L Potassium 3.7 (3.5-5.1) mmol/L Chloride 106 (98-107) mmol/L Carbon Dioxide 24.0 (21.0-32.0) mmol/L BUN 12 (7-18) mg/dL Creatinine 0.78 (0.51-1.17) mg/dL Est Cr Clr Drug Dosing 74.66 mL/min Estimated GFR (MDRD) > 60 mL/min Glucose 103 (74-106) mg/dL Lactic Acid 0.5 (0.4-2.0) mmol/L Calcium 8.8 (8.5-10.1) mg/dL Magnesium 2.1 (1.8-2.4) mg/dL Total Bilirubin 0.2 (0.2-1.0) mg/dL AST 24 (15-37) U/L ALT 33 (12-78) U/L Alkaline Phosphatase 77 (46-116) IU/L Creatine Kinase 152 (26-308) U/L Creatine Kinase Index 1.5 (0.0-2.5) % CK-MB (CK-2) 2.30 (0.00-3.60) ng/mL Troponin I 0.000 0.000 (0.000-0.056) ng/mL NT-Pro-B Natriuret Pep 65 (0-125) pg/mL Total Protein 7.7 (6.4-8.2) g/dL Albumin 4.0 (3.4-5.0) g/dL Free T4 (0.76-1.46) ng/dL TSH, Ultra Sensitive 6.073 H (0.358-3.740) mIU/mL 05/15/20 05/15/20 05/16/20 Range/Units 11:45 18:40 07:35 WBC 5.7 (4.0-10.2) K/uL RBC 4.80 (3.77-5.09) M/uL Hgb 14.3 D (11.7-15.5) g/dL Hct 43.3 (34.0-46.0) % MCV 90.2 (84.0-98.0) fL MCH 29.8 (28.2-33.3) pg MCHC 33.0 (31.7-36.0) g/dL RDW 13.5 (11.2-14.1) % Plt Count 255 (150-350) K/uL Neut % (Auto) 55.1 (45.0-80.0) % Lymph % (Auto) 27.4 (10.0-50.0) % [place] % (Auto) 10.1 (2.0-14.0) % Eos % (Auto) 6.2 H (0.0-5.0) % Baso % (Auto) 1.2 (0.0-2.0) % Neut # (Auto) 3.11 (1.40-7.00) K/uL Lymph # (Auto) 1.55 (0.50-3.50) K/uL [place] # (Auto) 0.57 (0.00-1.00) K/uL Eos # (Auto) 0.35 (0.00-0.50) K/uL Baso # (Auto) 0.07 (0.00-0.20) K/uL PT (9.5-12.0) SEC INR APTT (24.5-32.8) SEC D-Dimer, Quantitative (0-400) ng/mL Sodium (136-145) mmol/L Potassium (3.5-5.1) mmol/L Chloride (98-107) mmol/L Carbon Dioxide (21.0-32.0) mmol/L BUN (7-18) mg/dL Creatinine (0.51-1.17) mg/dL Est Cr Clr Drug Dosing mL/min Estimated GFR (MDRD) mL/min Glucose (74-106) mg/dL Lactic Acid (0.4-2.0) mmol/L Calcium (8.5-10.1) mg/dL Magnesium (1.8-2.4) mg/dL Total Bilirubin (0.2-1.0) mg/dL AST (15-37) U/L ALT (12-78) U/L Alkaline Phosphatase (46-116) IU/L Creatine Kinase 126 102 (26-308) U/L Creatine Kinase Index 1.3 1.1 (0.0-2.5) % CK-MB (CK-2) 1.70 1.10 (0.00-3.60) ng/mL Troponin I 0.000 (0.000-0.056) ng/mL NT-Pro-B Natriuret Pep (0-125) pg/mL Total Protein (6.4-8.2) g/dL Albumin (3.4-5.0) g/dL Free T4 (0.76-1.46) ng/dL TSH, Ultra Sensitive (0.358-3.740) mIU/mL 05/16/20 Range/Units 07:35 WBC (4.0-10.2) K/uL RBC (3.77-5.09) M/uL Hgb (11.7-15.5) g/dL Hct (34.0-46.0) % MCV (84.0-98.0) fL MCH (28.2-33.3) pg MCHC (31.7-36.0) g/dL RDW (11.2-14.1) % Plt Count (150-350) K/uL Neut % (Auto) (45.0-80.0) % Lymph % (Auto) (10.0-50.0) % [place] % (Auto) (2.0-14.0) % Eos % (Auto) (0.0-5.0) % Baso % (Auto) (0.0-2.0) % Neut # (Auto) (1.40-7.00) K/uL Lymph # (Auto) (0.50-3.50) K/uL [place] # (Auto) (0.00-1.00) K/uL Eos # (Auto) (0.00-0.50) K/uL Baso # (Auto) (0.00-0.20) K/uL PT (9.5-12.0) SEC INR APTT (24.5-32.8) SEC D-Dimer, Quantitative (0-400) ng/mL Sodium 138 (136-145) mmol/L Potassium 4.4 (3.5-5.1) mmol/L Chloride 103 (98-107) mmol/L Carbon Dioxide 25.4 (21.0-32.0) mmol/L BUN 12 (7-18) mg/dL Creatinine 0.83 (0.51-1.17) mg/dL Est Cr Clr Drug Dosing 71.90 mL/min Estimated GFR (MDRD) > 60 mL/min Glucose 104 (74-106) mg/dL Lactic Acid (0.4-2.0) mmol/L Calcium 9.4 (8.5-10.1) mg/dL Magnesium (1.8-2.4) mg/dL Total Bilirubin 0.5 (0.2-1.0) mg/dL AST 28 (15-37) U/L ALT 35 (12-78) U/L Alkaline Phosphatase 77 (46-116) IU/L Creatine Kinase 88 (26-308) U/L Creatine Kinase Index 1.3 (0.0-2.5) % CK-MB (CK-2) 1.10 (0.00-3.60) ng/mL Troponin I 0.000 (0.000-0.056) ng/mL NT-Pro-B Natriuret Pep (0-125) pg/mL Total Protein 8.3 H (6.4-8.2) g/dL Albumin 4.2 (3.4-5.0) g/dL Free T4 1.08 (0.76-1.46) ng/dL TSH, Ultra Sensitive (0.358-3.740) mIU/mL DALE Results - Last 24 hrs: None Med Orders - Current: Current Medications Atorvastatin Calcium (Lipitor) 10 mg PO BEDTIME COUNT INCLUDES THE [facility] Last Admin: 05/15/20 19:24 Dose: 10 mg Documented by: Levothyroxine Sodium (Synthroid) 100 mcg PO DAILY COUNT INCLUDES THE [facility] Last Admin: 05/16/20 07:00 Dose: 100 mcg Documented by: Sodium Chloride (Saline Flush) 10 ml FLUSH ASDIRECTED PRN PRN Reason: Keep Vein Open Last Admin: 05/15/20 19:26 Dose: 10 ml Documented by: Discontinued Medications Levothyroxine Sodium (Synthroid) 50 mcg PO ONETIME ONE Stop: 05/15/20 02:23 Last Admin: 05/15/20 02:51 Dose: 50 mcg Documented by: - Exam Quality Assessment: Reports: DVT Prophylaxis. Denies: Supplemental Oxygen, Central Line/PICC, Urine Catheter, Skin Breakdown, Restraints General: Reports: Alert, Oriented, Cooperative, No Acute Distress HEENT: Reports: Pupils Equal, Pupils Reactive, EOMI, Mucous Membr. Moist/[place]. Denies: Scleral Icterus Neck: Reports: Supple, Trachea Midline, No JVD, No Thyromegaly, +2 Carotid Pulse wo Bruit. Denies: Lymphadenopathy Lungs: Reports: Clear to Auscultation, Normal Respiratory Effort. Denies: Rub Cardiovascular: Reports: Regular Rate, No Murmurs, Irregular Rhythm (Frequent extrasystoles). Denies: Gallops, Rubs GI/Abdominal Exam: Normal Bowel Sounds, Soft, Non-Tender, No Organomegaly, No Distention, No Abnormal Bruit, No Mass, Pelvis Stable. No: Guarding (Female) Exam: Deferred Rectal (Female) Exam: Deferred Back Exam: Reports: Normal Inspection, Full Range of Motion, Other (Spinal fusion noted in the inferior thoracic region). Denies: CVA Tenderness (L), CVA Tenderness (R), Muscle Spasm, Paraspinal Tenderness, Vertebral Tenderness Extremities: Normal Inspection, Normal Range of Motion, Non-Tender, No Pedal Edema, Normal Capillary Refill. No: Ba's Sign Skin: Reports: Warm, Dry, Intact. Denies: Ecchymosis Neurological: Reports: No New Focal Deficit, Other (No clinical orthostasis) Psy/Mental Status: Reports: Alert, Normal Affect, Normal Mood. Denies: Agitated, Hallucinations, Withdrawal Symptoms EKG INTERPRETATION EKG Date: 05/16/20 Time: 08:40 Rhythm: Other (Sinus rhythm with frequent PVCs) Rate (Beats/Min): 72 [place]: Normal (Left) P-Wave: Present QRS: Normal (0.09 seconds with stable T wave inversion in lead V1) ST-T: Normal QT: Normal ME/PQ Interval: 0.13 seconds representing had relatively stable short ME interval with no delta waves noted Comparison: No Change (No change since 05/15/2020) EKG Interpretation Comments: 1. No acute ischemic changes 2. Frequent PVCs 3. Short ME interval
[2020-05-16 10:09] LABS: CHLORIDE,CL 103 mmol/L (98-107); SODIUM,NA 138 mmol/L (136-145)
[2020-05-16 11:51] LABS: HEMOGLOBIN A1C 5.2 % (4.3-5.7)
--- NOTE | 2020-05-16 16:02 | PCM.SN.2 ---
- Free Text/Narrative Note: Note glycosylated hemoglobin of 5.2% with normal fasting lipid panel, including excellent HDL, with results received after patient's discharge
== END 2020-05-16 10:50 | disposition home or self-care (01) ==
LOC: LL.ED 00:36 → LL.MS 01:59 → UNDOADMOB 01:59 → LL.MS 02:17 → UNDODISOB 05-16 10:50
PROVIDERS: ADMIT Emergency Medicine; ATTEND Family Medicine
DX: I49.3 Ventricular premature depolarization (principal); R07.89 Other chest pain; F41.9 Anxiety disorder, unspecified; F17.200 Nicotine dependence, unspecified, uncomplicated; E78.5 Hyperlipidemia, unspecified; E06.3 Autoimmune thyroiditis; F41.8 Other specified anxiety disorders; R94.31 Abnormal electrocardiogram [ECG] [EKG]; J43.1 Panlobular emphysema; M89.49 Other hypertrophic osteoarthropathy, multiple sites; Z86.79 Personal history of other diseases of the circulatory system; Z88.0 Allergy status to penicillin; Z79.899 Other long term (current) drug therapy; Z86.59 Personal history of other mental and behavioral disorders
CPT/HCPCS: 36415; 71046; 80053; 80061; 82550; 82553; 83036; 83605; 83735; 83880; 84439; 84443; 84481; 84484; 85025; 85379; 85610; 85730; 93005; 99285; A9270; G0378